=== PATIENT | male | born 2000 | race Caucasian/White ===

== ENCOUNTER 2023-03-21 15:20 | Emergency (ER) | payer OTHER ==
[~2023-03-21] VITALS: Ht 167.6 cm; Wt 61.7 kg
[2023-03-21 16:29] VITALS: BP 131/66; O2SAT 100
== END 2023-03-21 16:30 | disposition home or self-care (01) ==
LOC: ER 15:20
DX: S60.222A Contusion of left hand, initial encounter (principal); F32.A Depression, unspecified; V47.0XXA Car driver injured in collision with fixed or stationary object in nontraffic accident, initial encounter; Y93.89 Activity, other specified; Y92.89 Other specified places as the place of occurrence of the external cause; Y99.8 Other external cause status
CPT/HCPCS: 73120; A4606; A4663